=== PATIENT | female | born 1975 | race Caucasian/White ===

== ENCOUNTER → 2016-10-07 | Outpatient (CLI) | payer OTHER ==
[~2016-10-07] MED LIST: ARIXTRA10 MG/0.8 SQ; BIRTH CONTROL PILL PO; COREG12.5 MG PO; COUMADIN5 MG PO; CYANOCOBAL1000 MCG/M INJ; DIAZIDE; EFFEXOR37.5 MG PO; ELIQUIS5 MG PO; FUROSEMIDE40 MG PO; HYDROCODON-ACE1 EAC5 PO; INVOKANA300 MG PO; LASIX PO; LIPITOR40 MG PO; NEXIUM40 M1 PO; PHENERGAN25 MG PO; QNASL8.7 GM NS; SINGULAIR PO; SINGULAIR5 MG PO; TOPIRAMATE100 MG PO; VITAMIN B122500 MC1; XANAX1 MG PO; ZESTRIL10 MG PO
--- NOTE | ~2016-10-07 | NM69 ---
[facility] A Service of [facility] & [facility] RADIOLOGY TEXT RESULTS PATIENT: JONEL HERNANDEZ LOCATION: [facility] : [birth year] UNIT #: [id number] AGE: [address]: Favio Sanchez MD SEX: F ORDER DR: [id number] [facility] [address] [place], [place] [address] [id number] O MR#: [id number] Acc #: [id number] NAME: JONEL HERNANDEZ : 1975 SEX: F STUDY DATE/TIME: 10/07/2016 12:31 UNIT: [facility] ROOM: STUDY DESCRIPTION: NM Pulm Vent and Perf Attending Physician: Favio Sanchez M.D. Referring Physician: Favio Sanchez M.D. Ordering Physician: Favio Sanchez M.D. Primary Care Physician: Chika Adams A.P.R.N. MEDICAL IMAGING REPORT This report is preliminary unless electronic signature is present EXAM Ventilation/perfusion lung scan, 10/07/2016, [facility]. HISTORY 41-year-old woman with history of pulmonary thromboembolic disease with abnormal PE protocol CT, date 04/19/2013. Abnormal ventilation-perfusion lung scan, 07/31/2014. Patient indicates symptoms of 4 years duration. COMPARISON Comparison ventilation-perfusion lung scan, 07/31/2014. TECHNIQUE Following inhalation of 31.1 mCi of technetium-labeled DTPA aerosol, bilateral lungs were scanned in multiple projections. There is homogeneous radiotracer distribution with no ventilation defects present. Perfusion images were then recorded in similar projections following intravenous injection of 5.25 mCi of technetium-99m macroaggregated albumin. FINDINGS Bilateral perfusion defects are again imaged without significant change from the prior study, 07/31/2014. Bilateral perfusion mismatches remain, consistent with previous finding of bilateral pulmonary thromboembolic disease. I see no new focal areas of reduced or absent perfusion to implicate interval occurring emboli. IMPRESSION Stable ventilation/perfusion lung scan, consistent with chronic bilateral pulmonary thromboembolic disease. STAT * RESULT [facility]. [facility] A Service of [facility] RADIOLOGY TEXT RESULTS PATIENT: JONEL HERNANDEZ LOCATION: [facility] : [birth year] UNIT #: [id number] AGE: [address]: Favio Sanchez MD SEX: F ORDER DR: Dictated by... Layton Masterson M.D. THIS IS AN ELECTRONICALLY VERIFIED REPORT Layton Masterson M.D. at 10/07/2016 2:34 PM Zach TD: 10/07/2016 13:41 JOB #: [id number] MEDICAL IMAGING REPORT Page 1 of 1 COPY
--- NOTE | ~2016-10-07 | CR63 ---
[facility] A Service of [facility] & [facility] RADIOLOGY TEXT RESULTS PATIENT: JONEL HERNANDEZ LOCATION: [facility] : 73 UNIT #: [id number] AGE: [address]: Favio Sanchez MD SEX: F ORDER DR: [id number] [facility] [address] [place], [place] [address] [id number] O MR#: [id number] Acc #: [id number] NAME: JONEL HERNANDEZ : 1975 SEX: F STUDY DATE/TIME: 10/07/2016 11:53 UNIT: [facility] ROOM: STUDY DESCRIPTION: CR Chest 2 View Attending Physician: Favio Sanchez M.D. Referring Physician: Favio Sanchez M.D. Ordering Physician: Favio Sanchez M.D. Primary Care Physician: Chika Adams A.P.R.N. MEDICAL IMAGING REPORT This report is preliminary unless electronic signature is present EXAM Chest PA and lateral, 10/07/2016 HISTORY Dyspnea for 4 years. Chronic pulmonary emboli, history of multiple pulmonary emboli, shortness of breath on exertion. FINDINGS The cardiac and mediastinal structures are stable compared with 07/31/2014. There is poor inspiratory result and slight elevation of the right hemidiaphragm with discoid atelectasis at the right lung base. The lungs are otherwise clear. There are no pleural effusions. IMPRESSION No active pulmonary disease. Dictated by... Petr Thorne M.D. THIS IS AN ELECTRONICALLY VERIFIED REPORT Petr Thorne M.D. at 10/08/2016 8:20 AM KRT/gilda TD: 10/07/2016 19:35 JOB #: [id number] MEDICAL IMAGING REPORT Page 1 of 1 COPY
== END | disposition home or self-care (01) ==
LOC: CNUC 11:19
DX: R06.00 Dyspnea, unspecified (principal)
CPT/HCPCS: 71020; 78582; A9540; A9567

== ENCOUNTER → 2016-12-17 | Outpatient (CLI) | payer OTHER ==
[~2016-12-17] VITALS: Ht 170.2 cm; Wt 115.8 kg
[2016-12-17 09:54] LABS: HEMATOCRIT 45.1 % (35.0-45.0); HEMOGLOBIN 15.1 gm/dL (12.0-16.0); MEAN CELL VOLUME 84.3 FL (83-96); MEAN CORPUSCULAR HEMOGLOBIN 28.3 PG (28-34); MEAN CORPUSCULAR HGB CONC 33.5 g/dL (30-36); MEAN PLATELET VOLUME 7.3 FL (6.5-11.5); RED BLOOD COUNT 5.35 X10e (3.90-5.30); RED CELL DISTRIBUTION WIDTH 19.8 % (11.0-15.5); WHITE BLOOD COUNT 7.3 X10e3 (4.0-10.5)
[2016-12-17 10:09] LABS: INR 0.9; PROTHROMBIN TIME (PATIENT) 10.2 SECONDS (10.0-11.7)
[2016-12-17 10:19] LABS: CALCIUM SERUM 9.5 mg/dL (8.4-10.2); CREATININE SERUM 1.1 mg/dL (0.6-1.4); GLOM FILT RATE Estimated 61.9 mL/min (>60); POTASSIUM 3.8 mmol/L (3.5-5.1)
== END | disposition home or self-care (01) ==
LOC: CCVL 09:17
PROVIDERS: Internal Medicine Cardiovascular Disease
DX: R06.02 Shortness of breath (principal); E66.9 Obesity, unspecified; E11.9 Type 2 diabetes mellitus without complications; Z86.711 Personal history of pulmonary embolism; Z82.49 Family history of ischemic heart disease and other diseases of the circulatory system; Z88.8 Allergy status to other drugs, medicaments and biological substances; Z79.01 Long term (current) use of anticoagulants; Z79.899 Other long term (current) drug therapy; Z68.41 Body mass index [BMI] 40.0-44.9, adult
CPT/HCPCS: 36415; 80048; 82810; 84703; 85027; 85610; 85730; 99152; 99153; C1769; C1887; C1894; J1644; J2250; J3010